=== PATIENT | male | born 1950 | race Caucasian/White ===

== ENCOUNTER 2017-03-13 10:36 | Day surgery (SDC) | payer MEDICARE, BC ==
[~2017-03-13 10:36] MED LIST: Lactated Ringers 1,000 ML IV SCH; Lidocaine 1%/Sod Bicarbonate in NS 8.4% 1 ML Syringe PRN; Sodium Chloride 0.9% 10 ML Syringe FLUSH PRN
[2017-03-13] MEDS ORDERED: Albuterol 0.083% 2.5 MG/3 ML Neb Soln NEB ONE (11:08)
--- NOTE | 2017-03-13 11:08 | PCM.PREANE ---
Preanesthetic Assessment - Procedure Proposed Procedure: diagnostic colonosscopy - Anesthesia/Transfusion/Family Hx Anesthesia History: Prior Anesthesia Without Reaction Family History of Anesthesia Reaction: No Transfusion History: No Prior Transfusion(s) - Review of Systems General: No Symptoms Pulmonary: No Symptoms Cardiovascular: No Symptoms Gastrointestinal: No Symptoms Neurological: No Symptoms Other: Reports: None - Physical Assessment NPO Status Date: 03/12/17 NPO Status Time: 22:00 (sip of water this am) Pulse: 91 O2 Sat by Pulse Oximetry: 95 Respiratory Rate: 16 Blood Pressure: 136/72 Temperature: 98.4 F Height: 6 ft Weight: 95.708 kg ASA Class: 2 Mental Status: Alert & Oriented x3 Airway Class: Mallampati = 1 Dentition: Reports: Dentures (top and bottom) Thyro-Mental Finger Breadths: 3 Mouth Opening Finger Breadths: 3 ROM/Head Extension: Full Lungs: Normal Respiratory Effort, Rhonchi, Wheezing (neb treatment ordered) Cardiovascular: Regular Rate, Regular Rhythm - Allergies Allergies/Adverse Reactions: Allergies Allergy/AdvReac Type Severity Reaction Status Date / Time No Known Allergies Allergy Verified 03/12/17 16:15 - Blood Blood Available: No - Acknowledgements Anesthesia Type Planned: MAC Pt an Appropriate Candidate for the Planned Anesthesia: Yes Alternatives and Risks of Anesthesia Discussed w Pt/Guardian: Yes Pt/Guardian Understands and Agrees with Anesthesia Plan: Yes PreAnesthesia Questionnaire HEENT History: Reports: None Cardiovascular History: Reports: High Cholesterol, Hypertension Respiratory History: Reports: COPD, Other (See Below) Other Respiratory History: acute bronchitis Gastrointestinal History: Reports: Colon Polyp [employer]IST[employer] History: Reports: None Musculoskeletal History: Reports: Other (See Below) Other Musculoskeletal History: back spasms Neurological History: Reports: None Psychiatric History: Reports: None Endocrine/Metabolic History: Reports: None Hematologic History: Reports: None Immunologic History: Reports: None Oncologic (Cancer) History: Reports: None Other Dermatologic History: actinitic keratosis, cutaneous candidiasis, lipoma, pomphalyx - Past Surgical History Head Surgeries/Procedures: Reports: None HEENT Surgical History: Reports: None, Tonsillectomy Cardiovascular Surgical History: Reports: None GI Surgical History: Reports: Colonoscopy, Hernia Repair/Other Male Surgical History: Reports: Vasectomy Endocrine Surgical History: Reports: None Neurological Surgical History: Reports: None Oncologic Surgical History: Reports: None - SUBSTANCE USE Smoking Status *Q: Current Every Day Smoker Tobacco Use Within Last Twelve Months: Cigarettes Second Hand Smoke Exposure: Yes Days Per Week of Alcohol Use: 4 Number of Drinks Per Day: 2 Total Drinks Per Week: 8 Recreational Drug Use History: No - HOME MEDS Home Medications: Home Meds Aspirin [Adult Low Dose Aspirin EC] 81 mg PO DAILY 01/24/16 [History] Cyclobenzaprine HCl 5 - 10 mg PO BEDTIME PRN 01/24/16 [History] Fish Oil/Cameron-3 Fatty Acids [Fish Oil 1,000 MG] 1 gm PO DAILY 01/24/16 [History ] Fluticasone/Salmeterol [Advair 250-50 Diskus] 1 puff INH BID 01/24/16 [History] Tiotropium [Spiriva Handihaler] 1 puff INH DAILY 01/24/16 [History] Vitamin B Complex 1 cap PO DAILY 01/24/16 [History] Ciclopirox/Skin Cleanser No.28 [Ciclodan 0.77% Cream Kit] 1 dose TOP BID [History] Lisinopril [Lisinopril] 20 mg PO DAILY 03/12/17 [History] Rosuvastatin [Crestor] 10 mg PO DAILY 03/12/17 [History] Triamcinolone Acetonide [Triamcinolone Acetonide 0.1% Crm] 1 dose TOP BID [History] - CURRENT (IN HOUSE) MEDS Current Meds: Current Medications Lactated Ringer's (Ringers, Lactated) 1,000 mls @ 125 mls/hr IV ASDIRECTED MADHU Stop: 03/13/17 23:00 Lidocaine/Sodium Bicarbonate (Buffered Lidocaine 1% In Ns 8.4%) 0.25 ml .XX ONETIME PRN PRN Reason: Prior to IV Start Stop: 03/13/17 18:00 Sodium Chloride (Saline Flush) 10 ml FLUSH ASDIRECTED PRN PRN Reason: Keep Vein Open Stop: 03/13/17 18:00 Discontinued Medications Fentanyl (Sublimaze) Confirm Administered Dose 100 mcg .ROUTE .STK-MED ONE Stop: 03/13/17 11:20 Propofol (Diprivan 20 Ml) Confirm Administered Dose 200 mg .ROUTE .STK-MED ONE Stop: 03/13/17 11:20
[2017-03-13] MEDS ORDERED: Propofol 200 MG/20 ML SDV ONE (11:19)
[2017-03-13] MEDS ORDERED: fentaNYL 100 MCG/2 ML SDV ONE (11:19)
--- NOTE | 2017-03-13 12:13 | PCM48HPAN ---
Post Anesthesia Note - EVALUATION WITHIN 48HRS OF ANESTHETIC Vital Signs in Normal Range: Yes Patient Participated in Evaluation: Yes Respiratory Function Stable: Yes Airway Patent: Yes Cardiovascular Function Stable: Yes Hydration Status Stable: Yes Pain Control Satisfactory: Yes Nausea and Vomiting Control Satisfactory: Yes Mental Status Recovered: Yes
--- NOTE | 2017-03-13 12:14 | PCM.OPNOTE ---
- General Post-Op/Procedure Note Date of Surgery/Procedure: 03/13/17 Operative Procedure(s): Colonoscopy with cold forceps polypectomy of a diminutive cecal polyp and 6 rectal polyps Findings: 1. Small cecal polyp 2. Sigmoid diverticulosis uncomplicated 3. 6 diminutive less than 5 mm rectal polyps Pre Op Diagnosis: History of multiple colorectal polyps Post-Op Diagnosis: 1. Sigmoid diverticulosis. 2. Multiple colorectal polyps Anesthesia Technique: MAC, Moderate Sedation Primary Surgeon: Moises Mccormick Pathology: Cecal polyp and 6 rectal polyps EBL in mLs: 0 Complications: None Condition: Good Free Text/Narrative:: Perianal inspection and digital rectal examination was unremarkable. The sphincter tone was normal. A lubricated colonoscope was inserted into the rectum and advanced under direct vision to the cecum which was identified. The bowel preparation was excellent. The cecum contained a small diminutive polyp which was removed with cold forceps., The ascending, transverse, and descending colons were endoscopically normal with no mass lesions or inflammatory changes seen. The area was hemostatic post biopsy. The sigmoid colon contained several small diverticuli which were uncomplicated. Some contain small fecaliths. The rectum contained 6 small hyperplastic appearing polyps which were removed with cold forceps. Air was removed as I finished the procedure. Photographs were taken for the patient and for the medical record.
[2017-03-13 12:20] VITALS: BP 110/70
== END 2017-03-13 13:01 | disposition home or self-care (01) ==
LOC: JD.SDS 10:36
PROVIDERS: ATTEND Surgery
DX: Z12.11 Encounter for screening for malignant neoplasm of colon (principal); D12.0 Benign neoplasm of cecum; D12.8 Benign neoplasm of rectum; Z86.010 Personal history of colon polyps; K57.30 Diverticulosis of large intestine without perforation or abscess without bleeding; J44.9 Chronic obstructive pulmonary disease, unspecified; I10 Essential (primary) hypertension; E78.5 Hyperlipidemia, unspecified; Z79.82 Long term (current) use of aspirin; Z79.899 Other long term (current) drug therapy; Z98.52 Vasectomy status; F17.210 Nicotine dependence, cigarettes, uncomplicated
CPT/HCPCS: 45380; J3010; J7120; 00810; 88305; J2704

== ENCOUNTER 2021-08-17 16:48 | Emergency (ER) | payer MEDICARE, BC ==
[2021-08-17 16:57] VITALS: BP 182/77; PULSE 93
[2021-08-17] MEDS ORDERED: Lactated Ringers 1,000 ML IV SCH (17:15)
[2021-08-17 18:10] LABS: CORONAVIRUS COVID-19 NAA NEGATIVE (NEGATIVE)
[2021-08-17] MEDS ORDERED: Sodium Chloride 0.9% 10 ML Syringe FLUSH ONE (18:18)
[2021-08-17] MEDS ORDERED: Iopamidol 612 MG/ML 100 ML Bottle IVPUSH ONE (18:18)
[2021-08-17] MEDS ORDERED: Sodium Chloride 0.9% 100 ML IV SCH (18:30)
[2021-08-17] MEDS ORDERED: Magnesium Citrate Solution 296 ML Bottle PO ONE (19:50)
== END 2021-08-17 20:04 | disposition home or self-care (01) ==
LOC: JD.ED 16:48
DX: K57.32 Diverticulitis of large intestine without perforation or abscess without bleeding (principal); K59.01 Slow transit constipation; J44.9 Chronic obstructive pulmonary disease, unspecified; F17.200 Nicotine dependence, unspecified, uncomplicated; E78.00 Pure hypercholesterolemia, unspecified; I10 Essential (primary) hypertension; Z79.82 Long term (current) use of aspirin; Z79.899 Other long term (current) drug therapy; Z20.822 Contact with and (suspected) exposure to COVID-19
CPT/HCPCS: 0240U; 36415; 74177; 80053; 83605; 83690; 83735; 85025; 85610; 85730; 86140; 93005; 99284; A9270; J7120; Q9967; 93010; 99285